=== PATIENT | male | born 2000 | race Caucasian/White ===

== ENCOUNTER 2021-07-04 15:57 | Emergency (ER) | payer OTHER, SELFPAY ==
[2021-07-04 16:04] VITALS: BP 140/89; PULSE 81; RESP 16; TEMP 36.8; O2SAT 99
--- NOTE | 2021-07-04 16:29 | ED.URI ---
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 No fever, cough, earache; no loss of taste/smell, CP, vomiting/diarrhea, S OB, rash. Patient had recent, weekly noncontributory Covid test; he is here about concern about strep as his roommate is being treated for it Related Data Allergies Allergy/AdvReac Type Severity Reaction Status Date / Time No Known Allergies Allergy Verified 07/04/21 16:13 Review of Systems Review of Systems: General/Constitutional: No weight loss,fever Eyes: N0: Redness,discharge Ears/Nose/Throat: No: Epistaxis,ear discharge Respiratory: Denies: Hemoptysis Gastrointestinal: No Vomiting, Bleeding-rectal Skin: No Lumps, eruption Neurologic: No Focal Weakness,Sz Hematologic: Denies: Petechiae/Purpura Psychiatric: No: Suicida ideationl All Other Systems: Reviewed and Negative PMFSH Comments At time of signature, agree with nursing past medical, surgical, social and family history. There is no relevant family history pertinent to the presenting complaint Exam Narrative: General Appearance: Well appearing, Well nourished EYE: PERRLA, Conjunctiva clear Ears: Auditory canal normal, TM normal Nose: Rhinorrhea, Mucousal erythema Mouth/Throat: MM moist, Uvula midline, Pharyngeal erythema Neck: Supple, No adenopathy Respiratory: No respiratory distress, Breath sounds equal, Clear to auscultation Cardiovascular: RRR, No JVD Musculoskeletal: Non tender, Normal strength Skin: Warm, Dry Neurological: A&O x3, CN II-XII intact Psychiatric: Normal mood, Normal affect Course Vital Signs Vital signs: Vital Signs Temperature 98.3 F 07/04/21 16:04 Pulse Rate 81 07/04/21 16:04 Respiratory Rate 16 07/04/21 16:04 Blood Pressure 140/89 07/04/21 16:04 Pulse Oximetry 99 07/04/21 16:04 Temperature 98.3 F 07/04/21 16:04 Pulse Rate 81 07/04/21 16:04 Respiratory Rate 16 07/04/21 16:04 Blood Pressure 140/89 07/04/21 16:04 Pulse Oximetry 99 07/04/21 16:04 MDM - URI/Sore Throat Lab Data Labs: Strep Screen Presumptive Negative *(Reference Range: Negative)* Discharge Plan Discharge Clinical Impression: Odynophagia Patient Disposition: Home, Self-Care Condition: Stable Instructions: Pharyngitis (ED) Prescriptions: New azithromycin 250 mg tablet See Rx Instructions .ROUTE .COMPLEX Qty: 6 RF: 0 lidocaine HCl [Lidocaine Viscous] 2 % solution 5 ml MUCOUS MEM QID PRN (Reason: pain) Qty: 100 RF: 0 Follow-up/Referrals: PHYSICIAN,DIMENS[employer] WAREHOUSE SUPERVISOR [Primary Care Provider] - Stand Alone Forms: Work/School Release IP
== END 2021-07-04 16:45 | disposition home or self-care (01) ==
PROVIDERS: Emergency Provider Emergency Medicine
DX: R13.10 Dysphagia, unspecified (principal)
CPT/HCPCS: 87081; 87880; 99213; G0463

== ENCOUNTER → 2021-07-08 00:19 | Outpatient (CLI) | payer OTHER, SELFPAY ==
[2021-07-08 19:52] LABS: SARS-CoV-2 RNA PCR Negative
== END ==
PROVIDERS: Visit Provider Emergency Medicine
DX: J02.9 Acute pharyngitis, unspecified (principal); Z20.822 Contact with and (suspected) exposure to COVID-19
CPT/HCPCS: C9803; U0003; U0005

== ENCOUNTER 2021-12-15 15:13 | Emergency (ER) | payer OTHER, SELFPAY ==
[2021-12-15 15:17] VITALS: BP 146/88; PULSE 75; RESP 16; TEMP 36.7; O2SAT 100
--- NOTE | 2021-12-15 15:19 | ED.UPPEXIN ---
HPI - Extremity Injury (Upper) General Chief Complaint: Wound/Laceration Stated Complaint: INJURED L HAND Time Seen by Provider: 12/15/21 15:30 Source: patient, RN notes reviewed and old records reviewed Mode of arrival: ambulatory Limitations: no limitations History of Present Illness HPI narrative: 21 year old male [facility] complaints of cutting his left thumb on Monday on the distal side ulnar side of his thumb while using a new knife to cut up some fruit. He states that he put a pressure dressing on it and bleeding was controlled, he cleansed it well and applied a band- aid. He states that he was told on Monday that it was too late to be sutured. He reports that he has been cleaning the skin with soap and water and alcohol solution and used new skin wound glue material on area. Wound is 1cm in length with edges well approximated with no redness or drainage noted. He reports that on previous he slipped on ice and injured his 4th finger on the left hand with noted healing scabbed abrasion noted to mid knuckle region with full ROM of finger with minimal stiffness noted no stated discomfort or swelling to 4th finger left hand. No fevers, chills or sweats. MD complaint: injury to: left and finger (laceration to left thumb, abrasion to PIP 6 days ago to left ring finger from fall) Other injuries: none Handedness: right Place: home Treatments prior to arrival: bandage and other (cleansing and applied liquid skin to wound on the , covered with Band-aide) Related Data Allergies Allergy/AdvReac Type Severity Reaction Status Date / Time No Known Allergies Allergy Verified 07/04/21 16:13 Review of Systems Review of Systems: CONSTITUTIONAL: Denies fever, chills, or sweats. EYES: Denies visual changes, redness, or discharge. ENT: Denies rhinorrhea, congestion, sore throat, or otalgia. CARDIOVASCULAR: Denies chest pain, palpitations, or edema. RESPIRATORY: Denies cough or dyspnea. GASTROINTESTINAL: Denies abdominal pain, nausea, vomiting, or diarrhea. GENITOURINARY: Denies dysuria or hematuria. SKIN: Denies rash or itching. well approximated laceration to distal ulnar side of thumb with no redness or drainage.Scabbed abrasion dorsal mid knuckle left ring finger with full ROM of finger. MUSCULOSKELETAL: Denies back pain, joint pain, or myalgia. NEUROLOGIC: Denies headache, numbness, or weakness. PSYCHIATRIC: Denies anxiety or depression. All systems reviewed & are unremarkable except as noted in HPI and below PMFSH Past Medical History Medical History (Updated 12/15/21 @ 16:28 by Melodie Duval NP) No significant medical problems Surgical History Surgical History (Updated 12/15/21 @ 16:28 by Melodie Duval NP) No history of previous surgery Social History Social History (Updated 12/15/21 @ 16:28 by Melodie Duval NP) Smoking status: Never smoker Alcohol intake: current Alcohol use details: RARE SOCIAL Substance use: never Gender identity (if verbalized by the patient): Male Comments At time of signature, agree with nursing past medical, surgical, social and family history. There is no relevant family history pertinent to the presenting complaint Exam Narrative: GENERAL: Well-appearing, well-nourished, and in no acute distress. HEAD: Normocephalic, atraumatic. EYES: PERRLA and EOMI. ENT: Nares clear, no rhinorrhea or epistaxis. Mucous membranes moist. NECK: Supple.no lymphadenopathy CHEST: Clear to auscultation. No respiratory distress.SAO2 100% on room air HEART: Regular rate and rhythm. No murmur heard. Normal peripheral pulses. ABDOMEN: Soft, nontender, nondistended, normal active bowel sounds. EXTREMITIES: Normal range of motion. No edema noted TO ANY FINGERS OF LEFT HAND WITH FULL MOBILITY, LACERATION TO LFT THUMB WELL APPROXIMATED WITH NO REDNESS OR DRAINAGE, PATIENT USED LIQUID SKIN ON WOUND WITH AREA HEALING. ABRASION TO PIP DORSAL AREA SCABBED WITH NO REDNESS OR
[2021-12-15 15:23] VITALS: BP 146/88; PULSE 75; RESP 16; TEMP 36.7; O2SAT 100
== END 2021-12-15 15:44 | disposition home or self-care (01) ==
PROVIDERS: Emergency Provider Registered Nurse
DX: S61.012A Laceration without foreign body of left thumb without damage to nail, initial encounter (principal); W26.0XXA Contact with knife, initial encounter; Y93.G9 Activity, other involving cooking and grilling
CPT/HCPCS: 99211; G0463

== ENCOUNTER 2023-03-03 17:12 | Emergency (ER) | payer OTHER, SELFPAY ==
--- NOTE | 2023-03-03 17:16 | ED.SKABFB ---
HPI - Skin/Abscess/Foreign Bdy General Chief complaint: Skin/Abscess/Foreign Body Stated complaint: CYST ON L THIGH Time Seen by Provider: 03/03/23 17:17 Source: patient Mode of arrival: ambulatory Limitations: no limitations History of Present Illness HPI narrative: Patient is a 22-year-old male that presents with swollen area to left groin. Patient states this started 3 or 4 months ago and was very small but has grown in size. Denies it ever draining or coming to a head. Patient states size is causing discomfort with walking at this time. Denies any testicular pain or swelling. Denies any fever, chills, nausea, vomiting, diarrhea. Related Data Allergies Allergy/AdvReac Type Severity Reaction Status Date / Time No Known Allergies Allergy Verified 03/03/23 17:18 Review of Systems Review of Systems: All systems reviewed & are unremarkable except as noted in HPI and below Constitutional: Constitutional: Denies body ache(s), Denies chills, Denies fatigue, Denies fever(s), Denies headache(s), Denies malaise and Denies weakness Eyes: Eyes: Denies blurry vision, Denies irritation and Denies loss of vision ENT: Denies otalgia, Denies headache(s), Denies nasal discharge, Denies sinus pain and Denies sore throat Cardiovascular: Cardiovascular: Denies chest pain, Denies irregular heart rhythm and Denies dyspnea Respiratory: Respiratory: Denies dyspnea Gastrointestinal: Gastrointestinal: Denies abdominal pain, Denies melena, Denies hematochezia, Denies diarrhea, Denies nausea and Denies vomiting Musculoskeletal: Musculoskeletal: Denies back pain, Denies myalgias and Denies arthralgias Integumentary/Breasts: Skin/Breast: Denies pruritus, Denies rash and Reports wounds Neurologic: Denies headache(s), Denies loss of vision and Denies weakness Psychiatric: Psychiatric: Reports no additional psychiatric complaints Endocrine: Endocrine: Denies fatigue PMFSH Past Medical History Medical History (Updated 03/03/23 @ 17:29 by Brittany Parnell APRN) No significant medical problems Surgical History Surgical History (Updated 12/15/21 @ 16:28 by Melodie Duval NP) No history of previous surgery Social History Social History (Updated 12/15/21 @ 16:28 by KATHERIN Pérez Smoking status: Never smoker Alcohol intake: current Alcohol use details: RARE SOCIAL Substance use: never Gender identity (if verbalized by the patient): Male Comments At time of signature, agree with nursing past medical, surgical, social and family history. There is no relevant family history pertinent to the presenting complaint. Exam Const: General: cooperative, healthy appearing, comfortable, no acute distress and well nourished Nutritional Appearance: well nourished Orientation/consciousness: patient oriented x3 Limitations: no limitations HENMT: Head: normal to inspection, normocephalic and atraumatic Ears: hearing grossly normal bilaterally and external ears normal Face/Nose/Sinus: Normal external nose present, normal facial exam and face symmetric Face and sinus: normal facial exam and face symmetric Mouth: Yes lip normal Eyes: General: appearance normal, both eyes and all related structures Alignment and Position: alignment normal and position normal Periorbital: periorbital findings normal Eyelids: eyelids normal Pupils: Equal, round and reactive pupils present EOM: EOMs intact bilaterally Neck: Neck: normal visual inspection, full ROM and supple Chest: Chest palpation & inspection: normal inspection of the chest Resp: Effort & Inspection: normal respiratory effort and able to speak in complete sentences Auscultation: clear to auscultation bilaterally Cardio: Rate: regular rate Rhythm: regular rhythm Heart sounds: S1 normal heart sound present and S2 normal heart sound present GI: Inspection: normal to inspection Skin: General skin exam: normal color and no rashes or lesions noted Full body images:
[2023-03-03 17:18] VITALS: BP 144/88; PULSE 91; RESP 16; TEMP 36.6; O2SAT 99
== END 2023-03-03 17:37 | disposition home or self-care (01) ==
PROVIDERS: Emergency Provider Nurse Practitioner Family
DX: L02.416 Cutaneous abscess of left lower limb (principal)
CPT/HCPCS: 99213; G0463

== ENCOUNTER 2023-08-30 12:34 | Emergency (ER) | payer OTHER, SELFPAY ==
[2023-08-30 12:43] VITALS: BP 130/96; PULSE 71; RESP 16; TEMP 36.3; O2SAT 98
--- NOTE | 2023-08-30 12:43 | ED.EYEPROB ---
HPI - Eye Problem General Chief complaint: Eye Problems Stated complaint: EYE REDNESS Time Seen by Provider: 08/30/23 12:44 Source: patient and RN notes reviewed History of Present Illness HPI Narrative: Patient is a 22-year-old male who presents to urgent care with complaints of left eye redness, scratchiness in swelling. Patient states that it started 2 days ago. Patient does typically wear contacts and has kept him out of the eyes for the last 2 days. Patient states the right eye is slightly red as of today. No other injury. No acute distress noted. Patient aware of the plan of care. Some parts of this dictation were generated by voice recognition software and may contain typographical and/or grammatical inaccuracies. Related Data Allergies Allergy/AdvReac Type Severity Reaction Status Date / Time No Known Allergies Allergy Verified 08/30/23 12:46 Review of Systems Review of Systems: CONSTITUTIONAL: Denies fever, chills, or sweats. EYES: Reports of left swelling, redness and clear drainage ENT: Denies rhinorrhea, congestion, sore throat, or otalgia. CARDIOVASCULAR: Denies chest pain, palpitations, or edema. RESPIRATORY: Denies cough or dyspnea. GASTROINTESTINAL: Denies abdominal pain, nausea, vomiting, or diarrhea. GENITOURINARY: Denies dysuria or hematuria. SKIN: Denies rash or itching. MUSCULOSKELETAL: Denies back pain, joint pain, or myalgia. NEUROLOGIC: Denies headache, numbness, or weakness. All other systems reviewed are negative, except as documented in HPI. [facility] Past Medical History Medical History (Updated 08/30/23 @ 13:04 by GISELE Saldaña) Allergies Surgical History Surgical History ) No history of previous surgery Family History Family History (Updated 03/07/23 @ 13:09 by RT Eddie(R)) Grandparent Leukemia Diabetes mellitus Grandparent Breast cancer Hypertension Social History Social History (Updated 03/07/23 @ 13:10 by Mahogany Olivera RT(R)) Smoking status: Never smoker Alcohol intake: current Substance use: never Substance use type: does not use Living arrangements: with roommate(s) Occupation/Education: occupation Additional occupation/education comments: Self employed Gender identity (if verbalized by the patient): Male Comments At the time of my signature, I reviewed and agree with the nursing past medical, surgical, social, and family history. There is no relevant family history pertinent to the patient complaint. Exam Narrative: GENERAL: This is a well-nourished, well-developed patient, in no apparent distress. HEAD: normocephalic, atraumatic. EYES: PERRL. Mild erythema to right sclera with clear drainage. Moderately injected/erythema to left conjunctiva with redness to the left sclera with clear drainage Vision is grossly intact. EARS: External ears normal, auditory canals clear and without drainage, TMs normal without perforation. Hearing grossly intact. NOSE: External nose normal with no obvious nasal discharge, nares without redness, no rhinorrhea. THROAT: Mucous membranes moist NECK: Neck supple, SKIN: warm, intact with no suspicious lesions or rash, good texture and turgor. NEURO: awake, alert, and oriented to person, place and time. There were no obvious focal neurologic abnormalities. EXTREMITIES: No clubbing, cyanosis, or edema. Course Course Level of Care: Express Care Visit Vital Signs Vital signs: Vital Signs Temperature 97.4 F L 08/30/23 12:43 Pulse Rate 71 08/30/23 12:43 Respiratory Rate 16 08/30/23 12:43 Blood Pressure 130/96 H 08/30/23 12:43 Pulse Oximetry 98 08/30/23 12:43 Temperature 97.4 F L 08/30/23 12:43 Pulse Rate 71 08/30/23 12:43 Respiratory Rate 16 08/30/23 12:43 Blood Pressure 130/96 H 08/30/23 12:43 Pulse Oximetry 98 08/30/23 12:43 Reviewed- Patient is informed that they may have pre-hypertension or
== END 2023-08-30 13:12 | disposition home or self-care (01) ==
PROVIDERS: Emergency Provider Nurse Practitioner Family
DX: H10.9 Unspecified conjunctivitis (principal)
CPT/HCPCS: 99213; G0463

== ENCOUNTER 2024-05-06 13:43 | Emergency (ER) | payer OTHER, SELFPAY ==
[2024-05-06 13:58] VITALS: BP 159/88; PULSE 84; RESP 16; TEMP 36.9; O2SAT 100
--- NOTE | 2024-05-06 14:13 | ED.GENADULT ---
HPI - General Adult General Chief complaint: Skin/Abscess/Foreign Body Stated complaint: Cyst on right ear Time Seen by Provider: 05/06/24 14:13 Source: patient Mode of arrival: ambulatory Limitations: no limitations History of Present Illness HPI narrative: 23-year-old male presented for complaint of swelling to the right ear lobe. States he had a cyst to the site for about one week, which he popped yesterday and drained pus. Endorses the site is slightly swollen. Applied alcohol cleanser. Related Data Allergies Allergy/AdvReac Type Severity Reaction Status Date / Time No Known Allergies Allergy Verified 08/30/23 12:46 Review of Systems Review of Systems: CONSTITUTIONAL: Denies malaise, chills, or fever. EYES: Denies visual changes, redness, or discharge. ENT: Denies rhinorrhea, congestion, sinus pain, and sore throat. Reports ear pain CARDIOVASCULAR: Denies chest pain, palpitations, or edema. RESPIRATORY: Denies cough or dyspnea. GASTROINTESTINAL: Denies abdominal pain, nausea, vomiting, diarrhea SKIN: Denies rash or itching. MUSCULOSKELETAL: Denies myalgia. NEUROLOGIC: Denies headache. All systems reviewed & are unremarkable except as noted in HPI and below PMFSH Past Medical History Medical History Allergies Surgical History Surgical History No history of previous surgery Family History Family History Grandparent Leukemia Diabetes mellitus Grandparent Breast cancer Hypertension Social History Social History Smoking status: Never smoker Alcohol intake: current Substance use: never Substance use type: does not use Living arrangements: with roommate(s) Occupation/Education: occupation Additional occupation/education comments: Self employed Gender identity (if verbalized by the patient): Male Comments At time of signature, agree with nursing past medical, surgical, social and family history. There is no relevant family history pertinent to the presenting complaint Exam Narrative: GENERAL: Well-appearing, ENT: Nares clear. Mucous membranes moist. Right ear lobe with mild swelling, crusted puncture site <0.5cm, mildly tender with palpation to lobe and pre auricular nodes. TMs pearly elena with dull light reflex bilaterally; no tragal tenderness. Oropharynx not erythematous without lesions. NECK: Supple. No lymphadenopathy CHEST: Clear to auscultation, breath sounds equal. No respiratory distress, speaks in full sentences. HEART: Regular rate and rhythm. No murmur heard. SKIN: Warm, dry, no rash. NEURO: Alert and oriented x3. PSYCH: Normal mood and affect Course Course Emergency Course: Patient is aware of diagnosis, understands and agrees to treatment plan. Anticipatory guidance given. Patient agrees to follow-up as directed and is aware of reasons to seek care at the emergency department. Portions of this record may have been created with voice recognition software Level of Care: Express Care Visit Vital Signs Vital signs: Vital Signs Temperature 98.5 F 05/06/24 13:58 Pulse Rate 84 05/06/24 13:58 Respiratory Rate 16 05/06/24 13:58 Blood Pressure 159/88 H 05/06/24 13:58 Pulse Oximetry 100 05/06/24 13:58 Oxygen Delivery Room Air 05/06/24 13:58 Temperature 98.5 F 05/06/24 13:58 Pulse Rate 84 05/06/24 13:58 Respiratory Rate 16 05/06/24 13:58 Blood Pressure 159/88 H 05/06/24 13:58 Pulse Oximetry 100 05/06/24 13:58 Oxygen Delivery Room Air 05/06/24 13:58 Reviewed Medical Decision Making MDM Narrative Medical decision making narrative: discussed physical exam findings. Reviewed prescription. Advised supportive measures and signs/symptoms to go to the ER. Patient is appropriate for outpatient treatment
== END 2024-05-06 14:26 | disposition home or self-care (01) ==
PROVIDERS: Emergency Provider Nurse Practitioner Family
DX: H60.11 Cellulitis of right external ear (principal)
CPT/HCPCS: 99213; G0463